=== PATIENT | female | born 2000 | race Caucasian/White ===

== ENCOUNTER 2019-10-09 15:16 | Outpatient (CLI) | payer OTHER ==
[2019-10-09 16:07] LABS: APPEARANCE,URINE CLOUDY; BILIRUBIN,URINE NEGATIVE (NEGATIVE); COLOR,URINE YELLOW; GLUCOSE, URINE NEGATIVE (NEGATIVE); KETONES,URINE NEGATIVE (NEGATIVE)
[2019-10-09 16:08] LABS: AMORPHOUS SEDIMENT,URINE TRACE /HPF; LEUKOCYTE ESTERASE,URINE TRACE (NEGATIVE); NITRITE,URINE NEGATIVE (NEGATIVE); PROTEIN,URINE NEGATIVE (NEGATIVE); UROBILINOGEN,URINE NEGATIVE mg/dL (<2.0)
[2019-10-09 16:26] LABS: URINE AMPHETAMINES SCREEN NEGATIVE; URINE BARBITURATES SCREEN NEGATIVE; URINE BENZODIAZEPINES SCREEN NEGATIVE; URINE COCAINE SCREEN NEGATIVE; URINE MARIJUANA (THC) SCREEN NEGATIVE; URINE METHADONE SCREEN NEGATIVE; URINE PHENCYCLIDINE SCREEN NEGATIVE
[2019-10-09 17:23] LABS: T.VAGINALIS (WET MOUNT) NO TRICHOMONAS SEEN; WBCS (WET MOUNT) 1+ WBCS SEEN; YEAST (WET MOUNT) NO YEAST SEEN
[2019-10-09 17:24] LABS: BACTERIA (WET MOUNT) 4+ BACTERIA SEEN; EPITHELIALS (WET MOUNT) 3+ EPITHELIALS SEEN; RBCS (WET MOUNT) 4+ RBCS SEEN
--- NOTE | 2019-10-09 17:56 | RADIOLOGY REPORT (SQ) ---
EXAM DESCRIPTION: U/S OB LIMITED COMPLETED DATE/TIME: 10/09/2019 5:37 pm REASON FOR STUDY: 27 weeks with spotting, COMPARISON: None. TECHNIQUE: Limited transabdominal grayscale ultrasound for evaluation of specific requested obstetri lowell parameters. LIMITATIONS: None. FINDINGS: CERVICAL LENGTH: 2.1 cm. Closed. LACEY: 9.1 cm. FHR: 136 beats per minute. PRESENTATION: Breech. PLACENTA: Anterior ANATOMY: Not assessed OTHER: No other significant findings. IMPRESSION: LIMITED OBSTETRICAL ULTRASOUND WITH MEASURED PARAMETERS DELINEATED ABOVE. Trimester of : Second trimester - 13 weeks 1 day to 27 weeks 6 days. TECHNICAL DOCUMENTATION: JOB ID: [id number] [employer]- All Rights Reserved Reading location - IP/workstation name: [email or web address]
[2019-10-09 18:58] LABS: CHLAM PCR NOT DETECTED (NOT DETECT)
== END 2019-10-09 18:02 | disposition home or self-care (01) ==
LOC: LC 15:16
PROVIDERS: ATTEND Obstetrics & Gynecology
PROC: 4A1HXCZ Monitoring of Products of Conception, Cardiac Rate, External Approach (ICD-10-PCS; principal; 2019-10-09)
DX: O26.852 Spotting complicating pregnancy, second trimester (principal); O47.02 False labor before 37 completed weeks of gestation, second trimester; Z3A.27 27 weeks gestation of pregnancy
CPT/HCPCS: 59899; 94760; 87086; 87210; 87088; 81001; 87186; 80307; 87491; 87591; 76815; Q0114

== ENCOUNTER 2019-11-20 15:50 | Emergency (ER) | payer BC, OTHER ==
[2019-11-20 16:07] VITALS: BP 117/72
--- NOTE | 2019-11-20 16:11 | ER Document Report ---
ED Medical Screen (RME) - General Chief Complaint: Shortness Of Breath Stated Complaint: SHORTNESS OF BREATH Time Seen by Provider: 11/20/19 16:04 TRAVEL OUTSIDE OF THE [place] IN LAST 30 DAYS: No - HPI Notes: 11/20/19 16:09 Patient is a 19-year-old female approx 33wks () who presents complaining of having palpitations for the past 1 to 2 days. She was sent here from labor and delivery for evaluation. Patient states that she does have occasional epigastric abdominal pain associated, but no lower abdominal pain or cramping. No vaginal discharge or bleeding. Patient states that she is c urrently being treated for UTI as well. Denies drug allergies. No fever. No h/o DVT/PE. I have treated and performed a rapid initial assessment of this patient. A comprehensive ED assessment and evaluation of the patient, analysis of test results and completion of medical decision making process will be conducted by additional ED providers. PHYSICAL EXAMINATION: GENERAL: Well-appearing, well-nourished and in no acute distress. A&Ox4. Answers questions appropriately. Heart: RRR Lungs: CTAB - Related Data Allergies/Adverse Reactions: No Known Allergies Allergy (Unverified 10/09/19 15:30) Physical Exam - Vital signs Vitals: Temp Pulse Resp BP Pulse Ox 98.4 F 110 H 16 117/72 100 11/20/19 16:04 11/20/19 16:04 11/20/19 16:04 11/20/19 16:04 11/20/19 16:04 Course - Vital Signs Vital signs: Temp Pulse Resp BP Pulse Ox 98.4 F 110 H 16 117/72 100 11/20/19 16:04 11/20/19 16:04 11/20/19 16:04 11/20/19 16:04 11/20/19 16:04
[2019-11-20 16:42] LABS: ABSOLUTE EOSINOPHILS # (AUTO) 0.5 10^3/uL (0.0-0.6); ABSOLUTE LYMPHOCYTES (AUTO) 1.5 10^3/uL (0.5-4.7); ABSOLUTE MONOCYTES (AUTO) 0.9 10^3/uL (0.1-1.4); ABSOLUTE NEUT (AUTO) 7.3 10^3/uL (1.7-8.2); BASOPHILS % (AUTO) 0.3 % (0-2); EOSINOPHILS % (AUTO) 5.1 % (0-6); HEMATOCRIT 33.8 % (36.0-47.0); HEMOGLOBIN 11.2 g/dL (12.0-15.5); MEAN CORPUSCULAR HEMOGLOBIN 28.3 pg (27.0-33.4); MEAN CORPUSCULAR HGB CONC 33.3 g/dL (32.0-36.0); MEAN CORPUSCULAR VOLUME 85 fl (80-97); MONOCYTES % (AUTO) 8.6 % (3-13); PLATELET COUNT 251 10^3/uL (150-450); RED BLOOD COUNT 3.97 10^6/uL (3.72-5.28); RED CELL DISTRIBUTION WIDTH 12.3 % (11.5-14.0); TOTAL CELLS COUNTED % (AUTO) 100 %; WHITE BLOOD COUNT 10.3 10^3/uL (4.0-10.5)
[2019-11-20 16:46] LABS: AMORPHOUS SEDIMENT,URINE TRACE /HPF; APPEARANCE,URINE TURBID; BILIRUBIN,URINE NEGATIVE (NEGATIVE); COLOR,URINE AMBER; GLUCOSE, URINE NEGATIVE (NEGATIVE); KETONES,URINE NEGATIVE (NEGATIVE); PROTEIN,URINE NEGATIVE (NEGATIVE); URINE SPECIFIC GRAVITY 1.016; UROBILINOGEN,URINE NEGATIVE mg/dL (<2.0)
--- NOTE | 2019-11-20 16:54 | RADIOLOGY REPORT (SQ) ---
EXAM DESCRIPTION: CHEST 2 VIEWS COMPLETED DATE/TIME: 11/20/2019 4:35 pm REASON FOR STUDY: palpitations, 33wks preg COMPARISON: None. EXAM PARAMETERS: NUMBER OF VIEWS: Two views. TECHNIQUE: PA and lateral views of the chest were obtained.. RADIATION DOSE: NA LIMITATIONS: none FINDINGS: LUNGS AND PLEURA: No consolidation, pleural effusion or pneumothorax. MEDIASTINUM AND HILAR STRUCTURES: No mediastinal or hilar contour abnormality. HEART AND VASCULAR STRUCTURES: The cardiac silhouette and pulmonary vasculature are within normal mercado its. BONES: No acute findings. HARDWARE: None in the chest. OTHER: No other finding. IMPRESSION: No acute cardiopulmonary process. TECHNICAL DOCUMENTATION: JOB ID: [id number] 2010 [employer]- All Rights Reserved Reading location - IP/workstation name: [email or web address]
[2019-11-20 17:17] LABS: ALBUMIN 3.6 g/dL (3.5-5.0); ALKALINE PHOSPHATASE 105 U/L (38-126); ANION GAP 9 (5-19); ASPARTATE AMINO TRANSFERASE 23 U/L (14-36); BILIRUBIN,DIRECT 0.2 mg/dL (0.0-0.4); BILIRUBIN,TOTAL 0.3 mg/dL (0.2-1.3); BLOOD UREA NITROGEN 7 mg/dL (7-20); CALCIUM 9.4 mg/dL (8.4-10.2); CARBON DIOXIDE 26 mmol/L (22-30); CHLORIDE 102 mmol/L (98-107); GLUCOSE 92 mg/dL (75-110); TOTAL PROTEIN 7.1 g/dL (6.3-8.2)
--- NOTE | 2019-11-20 18:09 | EKG REPORT ---
SEVERITY:- OTHERWISE NORMAL ECG - SINUS TACHYCARDIA : Confirmed by: Sigrid Myrick MD 20-Nov-2019 18:08:41
== END 2019-11-20 18:21 | disposition left against medical advice (07) ==
LOC: ER 15:50
DX: Z53.21 Procedure and treatment not carried out due to patient leaving prior to being seen by health care provider (principal); R06.02 Shortness of breath; R00.2 Palpitations; R10.13 Epigastric pain
CPT/HCPCS: 36415; 71046; 80053; 81001; 83735; 84443; 85025; 93005; 93010; 99281

== ENCOUNTER → 2019-11-20 | Outpatient (CLI) | payer BC, OTHER | LOC: LC 15:31 | PROVIDERS: ATTEND Obstetrics & Gynecology | DX: Z53.8 Procedure and treatment not carried out for other reasons (principal) ==

== ENCOUNTER 2019-12-10 11:53 | Inpatient (IN) | payer BC, OTHER ==
[2019-12-10] MEDS ORDERED: CITRIC ACID/SODIUM CITRATE ORAL SOLN 15 ML UDCUP ONE (12:01)
[2019-12-10] MEDS ORDERED: CEFAZOLIN 1 GM/D5W RTU 2 GM/100 ML RTUPB IV ONE (12:01)
--- NOTE | 2019-12-10 12:13 | Admission Physical ---
Datetime Report Generated by CPN: 12/10/2019 12:12 CURRENT ADMISSION Chief Complaint: Vaginal Bleeding Chief Complaint Other: Heavy vaginal bleeding in 36.0 wk with posterior previa Admit Impression : , Intrauterine ; Vaginal Bleeding Admit Plan: Admit to Unit; Initiate Section Protocol ALLERGIES Medication Allergies: No Medication Allergies: No Known Allergies (10/09/2019) Latex: No Latex Allergies Food Allergies: None Environmental Allergies: None OBSTETRICAL HISTORY EDC: 01/07/2020 00:00 : 2 Para: 0 Term: 0 : 0 SAB: 1 Ectopic: 0 Livin Cesareans: 0 VBACs: 0 Multiple Births: 0 Gestational Diabetes: No Rh Sensitization: No Incompetent Cervix: No MAY: No Infertility: No ART Treatment: No Uterine Anomaly: No IUGR: No Hx Previous C/S: No Macrosomia: No Hx Loss/Stillborn: Yes PIH: No Hx : No Placenta Previa/Abruption: No Depression/PP Depression: No PTL/PROM: No Post Hemorrhage: No Current Procedures: Ultrasound Obstetrical History Comments: 2018, SAB G2-Current SEE RECORDS Alcohol: No Marijuana : No Cocaine: No Other Illicit Drugs: No Cigarettes: Former Smoker. [id number] MEDICAL HISTORY Diabetes: No Blood Transfusion: No Pulmonary Disease (Asthma, TB): No Breast Disease: No Hypertension: No Online Services Manager Surgery: No Heart Disease: No Hosp/Surgery: Yes Autoimmune Disorder: No Anesthetic Complications: No Kidney Disease: Yes Abnormal Pap Smear: No Neuro/Epilepsy: No Psychiatric Disorders: No Other Medical Diseases: No Hepatitis/Liver Disease: No Significant Family History: No Varicosities/Phlebitis: No Trauma/Violence : No Thyroid Dysfunction: No Medical History Comments: Frequent UTI, Deflux of right kidney 2016 INFECTIOUS HISTORY Gonorrhea: No Genital Herpes: No Chlamydia: No Tuberculosis: No Syphilis: No Hepatitis: No HIV/AIDS Exposure: No Rash or Viral Illness: No HPV: No PHYSICAL EXAM General: Normal HEENT: Normal Neurologic: Normal Thyroid: Normal Heart: Normal Lungs: Normal Breast: Normal Back: Normal Abdomen: Normal Genitourinary Exam: Normal Extremities: Normal DTRs: Normal Pelvic Type: Adequate Vital Signs: Reviewed VAGINAL EXAM Contraction Comments: none noted MEMBRANES Membranes: Intact FETUS A EGA: 36.0 Monitoring: External US FHR- Baseline: 125 Variability: Moderate 6-25bpm Accelerations: 15X15 Decelerations: None FHR Category: Category I Presentation: Vertex Admit Comment: at 36.o wks with heavy vaginal bleeding from abruption r/t posterior previa. -Pt report large gush bleeding followed by continued bleeding requiring towel between legs to get here. No pain -Admit to LDR for PCS -NPO and IVFs: LR at 125 cc/hr. Make sure two large bore IV access obtained now -CEFM and toco FHR 125-130 w/ moderate variability and no decels seen -Ancef 2 gms IV prior to OR -Contact anesthesia/OR and nursing super. Plan for PCS for placenta abruption/previa at 36.0 wks EGA -SCDs for DVT proph -Routine and abruption labs ordered: pending -Risks, benefits discussed . COnsent signed for Primary section and blood products. PLANS FOR LABOR AND DELIVERY Feeding Preference: Breast Benefit of Breast Feed Discussed: Yes Circumcision: Yes INFORMED CONSENT Informed Consent Obtained: Section Delivery; Risks, Benefits and Alternatives Discussed Signature: with User ID: [email or web address] : with User ID: [email or web address]
[2019-12-10] MEDS ORDERED: CEFAZOLIN SODIUM 1 GM in DEXTROSE 5%-WATER 50 ML IV PRN (12:15)
[2019-12-10] MEDS ORDERED: FENTANYL CITRATE INJ/PF 100 MCG/2 ML AMPUL ONE ×2 (12:19→13:14)
[2019-12-10] MEDS ORDERED: PHENYLEPHRINE HCL INJ/PF 10 MG/1 ML SDV ONE (12:19)
[2019-12-10] MEDS ORDERED: OXYTOCIN 10 UNIT/ML VIAL ONE (12:19)
[2019-12-10] MEDS ORDERED: ONDANSETRON HCL INJ/PF 4 MG/2 ML SDV ONE (12:19)
[2019-12-10] MEDS ORDERED: ACETAMINOPHEN 1,000 MG/100 ML RTUPB IV ONE (12:19)
[2019-12-10] MEDS ORDERED: OXYTOCIN/NORMAL SALINE 20 UNIT/1,000 ML RTUINJ ONE (12:19)
[2019-12-10] MEDS ORDERED: KETOROLAC TROMETHAMINE INJ/PF 30 MG/1 ML SDV ONE (12:19)
[2019-12-10] MEDS ORDERED: PROPOFOL INJ 200 MG/20 ML VIAL IV ONE (12:20)
[2019-12-10 12:55] LABS: ABSOLUTE BASOPHILS # (AUTO) 0.1 10^3/uL (0.0-0.2); ABSOLUTE EOSINOPHILS # (AUTO) 0.3 10^3/uL (0.0-0.6); ABSOLUTE LYMPHOCYTES (AUTO) 1.7 10^3/uL (0.5-4.7); ABSOLUTE MONOCYTES (AUTO) 0.9 10^3/uL (0.1-1.4); ABSOLUTE NEUT (AUTO) 7.6 10^3/uL (1.7-8.2); BASOPHILS % (AUTO) 0.7 % (0-2); EOSINOPHILS % (AUTO) 2.8 % (0-6); HEMATOCRIT 32.8 % (36.0-47.0); HEMOGLOBIN 11.3 g/dL (12.0-15.5); LYMPHOCYTES % (AUTO) 15.6 % (13-45); MEAN CORPUSCULAR HEMOGLOBIN 28.7 pg (27.0-33.4); MEAN CORPUSCULAR HGB CONC 34.6 g/dL (32.0-36.0); MEAN CORPUSCULAR VOLUME 83 fl (80-97); MONOCYTES % (AUTO) 8.9 % (3-13); PLATELET COUNT 297 10^3/uL (150-450); RED BLOOD COUNT 3.95 10^6/uL (3.72-5.28); RED CELL DISTRIBUTION WIDTH 12.9 % (11.5-14.0); TOTAL CELLS COUNTED % (AUTO) 100 %; WHITE BLOOD COUNT 10.6 10^3/uL (4.0-10.5)
[2019-12-10] MEDS ORDERED: METHYLERGONOVINE MALEATE INJ/PF 0.2 MG/1 ML AMPULE ONE (12:55)
[2019-12-10 13:12] LABS: INTERNATIONAL RATION (INR) 0.95; PROTHROMBIN TIME 12.7 SEC (11.4-15.4)
[2019-12-10 13:13] LABS: FIBRINOGEN 500 mg/dL (209-497); PARTIAL THROMBOPLASTIN TIME 28.5 SEC (23.5-35.8)
[2019-12-10] MEDS ORDERED: DIPH/PERTUSS(ACELL)/TETANUS VAC/PF 0.5 ML SYR (>=10YO) IM PRN (13:34)
[2019-12-10] MEDS ORDERED: ACETAMINOPHEN 325 MG TABLET PO PRN (13:34)
[2019-12-10] MEDS ORDERED: SIMETHICONE 80 MG TAB.CHEW PO PRN (13:34)
[2019-12-10] MEDS ORDERED: MEASLES,MUMPS&RUBELLA VACC/PF 0.5 ML VIAL SUBCUT PRN (13:34)
[2019-12-10] MEDS ORDERED: OXYTOCIN/NORMAL SALINE 20 UNIT/1,000 ML RTUINJ IV PRN (13:34)
[2019-12-10] MEDS ORDERED: HYDROMORPHONE HCL INJ/PF 2 MG/ML AMPULE IV PRN (13:34)
[2019-12-10] MEDS ORDERED: PROMETHAZINE HCL INJ 25 MG/1 ML VIAL IV PRN (13:34)
[2019-12-10] MEDS ORDERED: KETOROLAC TROMETHAMINE INJ/PF 30 MG/1 ML SDV IV PRN (13:37)
[2019-12-10] MEDS ORDERED: PROMETHAZINE HCL INJ 25 MG/1 ML VIAL ONE (13:46)
[2019-12-10] MEDS ORDERED: HYDROMORPHONE HCL INJ/PF 2 MG/ML AMPULE ONE (13:46)
--- NOTE | 2019-12-10 13:54 | Operative Report ---
Operative Report DATE OF SURGERY: 12/10/19 PREOPERATIVE DIAGNOSIS: Intrauterine at 36 wks EGA. Placental abrupt ion. Vaginal bleeding. Placental previa POSTOPERATIVE DIAGNOSIS: Same as above OPERATION: Primary section SURGEON: CELENA FOX ANESTHESIA: GA TISSUE REMOVED OR ALTERED: Placenta COMPLICATIONS: None ESTIMATED BLOOD LOSS: 700cc INTRAOPERATIVE FINDINGS: Normal appearing uterus with ANTERIOR placenta previa with velamentous appearing cord insertion vs marginal. Bilateral fallopian tubes and ovaries normal. Viable male infant in vertex presentation. Clear amniotic flluids PROCEDURE: IV fluids: per anesthesia record approx 700cc Urinary output: 100 cc Findings: Normal-appearing uterus bilateral fallopian tubes and ovaries. Anterior placenta previa with velamentous appearing cord insertion vs marginal. Viable male infant with Apgars of 6 and 8, at 1 and 5 minutes respectively. Position: To recovery room in stable condition Description of procedure: The patient was taken to the operating room and general anesthesia was administered and found to be adequate. She was then placed on the OR table in the supine position with a slight leftward tilt. Patient was prepped and draped in usual sterile fashion. Ancef 2 gms was given IV prior to the procedure for infection prophylaxis. Timeout was taken. A Pfannenstiel skin incision was then made approximately 3 cm above the pubic symphysis and carried down to level the rectus fascia. The rectus fascia was then nicked in the midline with a scalpel and the fascial incision was extended laterally with use of curved Eddy scissors. The rectus fascia was then grasped with 2 Kocker clamps elevated and t he underlying rectus muscle was dissected off both bluntly and sharply. Any bleeding controlled with cautery. The rectus muscles were then split in the midline and the peritoneum was entered. The peritoneal incision was then extended by manually stretching the peritoneum. The bladder blade was positioned. Bladder flap created and the bladder was noted to be out of harm's way. A scalpel was then used in the lower uterine for the hysterotomy, slowly until amniotomy was obtained a large amount of bleeding was noted from anterior placenta. The uterine incision was then manually stretched. Amniotomy obtained and moderate amount clear fluid noted. The infant was noted to be in vertex postion. The head was elevated and brought to the hysterotomy incision with a hand and ultimately assist of Kiwi as head was difficult to deliver. Kiwi applied 2 cm anterior to posterior fontanel and over sagital suture. Suction applied just to green and gentle traction with orthotic assistant pushing. Pot off x1 . The head then delivered. The shoulders and the rest of the body followed immediately. The cord was cut clamped and the was handed off to the nurse awaiting. was crying prior to hand off. The placenta was manually delivered. Using a lap gauze the uterus was cleared of all clots and debris. The uterus was then exteriorized and a bladder blade was repositioned. The uterine incision was then closed with 0 Chromic suture in a running locked fashion. A second layer of the same suture was used in a running locked imbricated fashion. The uterine incision was inspected and noted to be hemostatic. The posterior aspect of the uterus was then inspected and anatomy was seen as above. The uterus was returned to its normal anatomic position within the abdominal cavity. Warm saline irrigation was used to clear all clots and debris from the abdomen. The uterine incision was inspected once more and noted to remain hemostatic. The bladder blade was removed and the peritoneum was closed with 2-0 chromic in a running fashion. The rectus muscles were then reapproximated and the rectus fascia was closed with a #1 PDS in a running fashion. The subcutaneous tissue was then inspected and any bleeding was controlled with Bovie electrocautery. The subcutaneous tissue was then closed with 2-0 Plain Gut suture in a running fashion. The skin was then closed with 3-0 Monocryl in a running subcuticular fashion. The skin incision was then clean dried and Dermabond was applied over the skin incision. All instrument sponge and needle counts were correct x3 for the procedure the patient tolerated the procedure well. She will proceed to recovery room in stable condition
[2019-12-10] MEDS ORDERED: IBUPROFEN 800 MG TABLET PO SCH ×2 (14:00→22:00)
[2019-12-10] MEDS ORDERED: MORPHINE SULFATE 10 MG/ML INJ ONE (14:46)
--- NOTE | 2019-12-10 16:08 | Delivery Summary ---
Del Sum A-C Datetime Report Generated by CPN: 12/10/2019 16:07 DELIVERY PERSONNEL DELIVERY PERSONNEL: [id number] Delivery Doctor:: Damaris Bradley MD Anesthesiologist:: Kathrine Gregory MD TON CONTAINER SHIPPER:: Willy Normile TON CONTAINER SHIPPER Labor and Delivery Nurse:: Umm Partida RNresidential tech Nurse:: Hugh Galvez RN Government Auditor:: Umm Partida RN Neonatal Nurse Practitioner:: JUANA Moy Nursery Nurse:: Cindy Coe RN Nursery Nurse:: Betty Gayle RN Water Softener Service Supervisor/FRAME FIXER: Sapphire Calero CST Water Softener Service Supervisor/FRAME FIXER: Kelli Ojeda CST MATERNAL INFORMATION Delivery Anesthesia: General Medications After Delivery: Pitocin Drip 20 Units/1000ml NSS Meds After Delivery Comment: pitocin 20 units in 1000mL nss Delivery QBL: 550 Maternal Complications: Placenta Previa; Abruptio Placenta LABOR SUMMARY EDC: 01/07/2020 00:00 No. Babies in Womb: 1 Attempted: No LABOR INFORMATION Reason for Induction: Not Applicable Oxytocin: N/A Group B Beta Strep: unknown Steroids Given: None Reason Steroids Not Administered: Not Applicable STAGES OF LABOR Stage 3 hr: 0 Stage 3 min: 1 VAGINAL DELIVERY Episiotomy: None Laceration #1: None Laceration Repair: Not Applicable Sponge Count Correct: N/A Sharps Count Correct: N/A CSECTION DELIVERY Primary Indication: Placenta Previa Secondary Indication: N/A CSection Urgency: Non-Scheduled CSection Incidence: Primary Labor: No Labor Elective: Nonelective CSection Incision: Lower Uterine Transverse BABY A INFORMATION Infant Delivery Date/Time: 12/10/2019 12:51 Method of Delivery: Nurse Controlled Delivery: No Born in Route : No : N/A Forceps: N/A Vacuum Extraction: Successful Shoulder Dystocia : No PRESENTATION/POSITION BABY A Presentation: Cephalic Cephalic Presentation: Vertex Breech Presentation: N/A PLACENTA INFORMATION BABY A Placenta Delivery Time : 12/10/2019 12:52 Placenta Method of Delivery: Manual Removal Placenta Status: Delivered SCORES BABY A Heart Rate 1 min: >100 bpm Resp Effort 1 min: Good Cry Reflex Irritability 1 min: Cough or Sneeze or Pulls Away Muscle Tone 1 min: Flaccid Color 1 min: Blue/Pale Resuscitation Effort 1 min: Tactile Stimulation SCORE 1 MIN: 6 Heart Rate 5 min: >100 bpm Resp Effort 5 min: Good Cry Reflex Irritability 5 min: Cough or Sneeze or Pulls Away Muscle Tone 5 min: Some Flexion of Extremities Color 5 min: Body [place], Extremities Blue Resuscitation Effort 5 min: Tactile Stimulation; Oxygen SCORE 5 MIN: 8 INFANT INFORMATION BABY A Gestational Age at Delivery: 36.0 Gestational Status: Late - 34- 36.6 Weeks Infant Outcome : Liveborn Condition : Stable Sex: Male IDENTIFICATION BABY A Infant Verification Date/Time: 12/10/2019 13:03 ID Band Number: [id number] Mother's Name Verified: Yes RN Verifying Infant: Juan Pablo Wiggins RN Additional Verifying Personnel: Diana Galvez RN WEIGHT/LENGTH BABY A Infant Birthweight (gm): 2822 Infant Weight (lb): 6 Infant Weight (oz): 4 Infant Length (in): 18.50 Length (cm): 46.99 CORD INFORMATION BABY A No. Cord Vessels: 3 Nuchal Cord : N/A Cord Blood Taken: Yes-For Storage (Mom's Blood type +) BABY B INFORMATION : N/A
[2019-12-10] MEDS: OXYCODONE-ACETAMINOPHEN 5-325 MG TABLET PO PRN (17:11)
[2019-12-10] MEDS: DOCUSATE SODIUM 100 MG CAPSULE PO SCH (17:11)
[2019-12-10] MEDS: KETOROLAC TROMETHAMINE INJ/PF 30 MG/1 ML SDV IV SCH (22:16)
[2019-12-11] MEDS: KETOROLAC TROMETHAMINE INJ/PF 30 MG/1 ML SDV IV SCH (05:05)
[2019-12-11] MEDS: OXYCODONE-ACETAMINOPHEN 5-325 MG TABLET PO PRN ×3 (05:05→19:23)
[2019-12-11] MEDS ORDERED: KETOROLAC TROMETHAMINE INJ/PF 30 MG/1 ML SDV IV SCH (06:00)
[2019-12-11 07:59] LABS: HEMATOCRIT 22.6 % (36.0-47.0); MEAN CORPUSCULAR HEMOGLOBIN 27.9 pg (27.0-33.4); MEAN CORPUSCULAR HGB CONC 33.4 g/dL (32.0-36.0); MEAN CORPUSCULAR VOLUME 84 fl (80-97); PLATELET COUNT 251 10^3/uL (150-450); RED BLOOD COUNT 2.71 10^6/uL (3.72-5.28); RED CELL DISTRIBUTION WIDTH 12.8 % (11.5-14.0); WHITE BLOOD COUNT 14.3 10^3/uL (4.0-10.5)
[2019-12-11 08:03] LABS: HEMOGLOBIN 7.5 g/dL (12.0-15.5)
[2019-12-11] MEDS: FERROUS SULFATE 325 MG TABLET PO SCH ×2 (10:16→19:20)
[2019-12-11] MEDS: PRENATAL VITAMIN W DHA CAPSULE PO SCH (10:16)
[2019-12-11] MEDS: DOCUSATE SODIUM 100 MG CAPSULE PO SCH ×2 (10:16→19:20)
--- NOTE | 2019-12-11 10:26 | PDOC PROGRESS REPORT ---
Subjective-OB Progress Note for:: 12/11/19 Subjective: reports bleeding slowing, pain controlled with current meds. denies needs Physical Exam (OB) Vital Signs: Temp Pulse Resp BP Pulse Ox 97.9 F 99 16 110/55 L 100 12/11/19 07:25 12/11/19 07:25 12/11/19 07:25 12/11/19 07:25 12/11/19 07:25 Intake & Output 12/10/19 12/11/19 12/12/19 06:59 06:59 06:59 Intake Total 400 Output Total 650 Balance -650 400 Weight 104.326 kg - Dressing Removed: No - no dressing Incision: Well Approximated Closure Type: Surgical Glue - Abdomen Description: Tender, Soft Hernia Present: No Fundal Description: Firm Fundal Height: u/u - u/2 - Abdominal Distension: No distension - Extremities Lower extremities: Ivanna's sign - neg Calf: Normal, Nontender Objective-Diagnostic Laboratory: 12/11/19 06:53 12/10/19 12/10/19 12/11/19 12:28 12:28 06:53 WBC 10.6 H 14.3 H RBC 3.95 2.71 L Hgb 11.3 L 7.5 L D Hct 32.8 L 22.6 L MCV 83 84 MCH 28.7 27.9 MCHC 34.6 33.4 RDW 12.9 12.8 Plt Count 297 251 Seg Neutrophils % 72.0 Blood Type A POSITIVE Antibody Screen NEGATIVE Assessment and Plan(PN) - Time Spent with Patient Time with patient: Less than 15 minutes - Disposition Anticipated Discharge: Home Within: within 24 hours
[2019-12-11] MEDS: IBUPROFEN 800 MG TABLET PO SCH ×2 (11:54→19:20)
[2019-12-11] MEDS ORDERED: IBUPROFEN 800 MG TABLET PO PRN (13:38)
[2019-12-12] MEDS: IBUPROFEN 800 MG TABLET PO SCH ×5 (00:16→23:34)
[2019-12-12] MEDS: OXYCODONE-ACETAMINOPHEN 5-325 MG TABLET PO PRN (06:13)
[2019-12-12 07:19] LABS: ABSOLUTE EOSINOPHILS # (AUTO) 0.7 10^3/uL (0.0-0.6); ABSOLUTE LYMPHOCYTES (AUTO) 2.5 10^3/uL (0.5-4.7); ABSOLUTE NEUT (AUTO) 8.9 10^3/uL (1.7-8.2); BASOPHILS % (AUTO) 0.2 % (0-2); EOSINOPHILS % (AUTO) 5.5 % (0-6); HEMATOCRIT 19.7 % (36.0-47.0); LYMPHOCYTES % (AUTO) 19.3 % (13-45); MEAN CORPUSCULAR HEMOGLOBIN 27.5 pg (27.0-33.4); MEAN CORPUSCULAR HGB CONC 32.8 g/dL (32.0-36.0); MEAN CORPUSCULAR VOLUME 84 fl (80-97); MONOCYTES % (AUTO) 7.7 % (3-13); PLATELET COUNT 222 10^3/uL (150-450); RED BLOOD COUNT 2.35 10^6/uL (3.72-5.28); RED CELL DISTRIBUTION WIDTH 13.1 % (11.5-14.0); SEGMENTED NEUTROPHILS % (AUTO) 67.3 % (42-78); TOTAL CELLS COUNTED % (AUTO) 100 %; WHITE BLOOD COUNT 13.1 10^3/uL (4.0-10.5)
[2019-12-12 07:21] LABS: HEMOGLOBIN 6.5 g/dL (12.0-15.5)
[2019-12-12] MEDS ORDERED: NORMAL SALINE 250 ML IV PRN (09:29)
--- NOTE | 2019-12-12 09:36 | PDOC PROGRESS REPORT ---
Subjective-OB Progress Note for:: 12/12/19 Subjective: Pt doing well, no concerns. Pain is well controlled. She does feel tired and sore but pain is well controlled. Denies symptoms of dizziness and shortness of breath. Consented verbally again for administration of blood products. Pt reports regular diet, pos flatus and voiding without difficulty. Physical Exam (OB) Vital Signs: Temp Pulse Resp BP Pulse Ox 98.0 F 85 17 129/69 H 99 12/12/19 07:25 12/12/19 07:25 12/12/19 07:25 12/12/19 07:25 12/12/19 07:25 Intake & Output 12/11/19 12/12/19 12/13/19 06:59 06:59 06:59 Intake Total 1450 Output Total 650 100 Balance -650 1350 Weight 104.326 kg - PIH/Pre-Eclampsia DTR's: 1 + Clonus: Negative Headache: Absent Epigastric Pain: No Visual Changes: No - Dressing Removed: No - no dressing Incision: Open Closure Type: Surgical Glue - Lochia Lochia Amount: Scant < 10 ml Lochia Color: Rubra/Red - Abdomen Description: Soft, Round Hernia Present: No Fundal Description: Firm, Midline Fundal Height: u/u - u/2 Objective-Diagnostic Laboratory: 12/12/19 06:47 12/10/19 12/12/19 12:28 06:47 WBC 13.1 H RBC 2.35 L Hgb 6.5 L Hct 19.7 L MCV 84 MCH 27.5 MCHC 32.8 RDW 13.1 Plt Count 222 Seg Neutrophils % 67.3 Blood Type A POSITIVE Antibody Screen NEGATIVE Assessment and Plan(PN) - Assessment and Plan (1) Acute blood loss anemia Is this a current diagnosis for this admission?: Yes (2) Placenta previa antepartum Is this a current diagnosis for this admission?: Yes (3) Placental abruption affecting delivery Is this a current diagnosis for this admission?: Yes (4) NB deliv by , 1,500-1,749 gm, 35-36 completed weeks Is this a current diagnosis for this admission?: Yes (5) S/P emergency Is this a current diagnosis for this admission?: Yes Plan:: transfuse PRBCs - Time Spent with Patient Time with patient: Less than 15 minutes Medications reviewed and adjusted accordingly: Yes - Disposition Anticipated Discharge: Home Within: within 24 hours, within 48 hours
[2019-12-12] MEDS: DOCUSATE SODIUM 100 MG CAPSULE PO SCH ×2 (09:51→17:43)
[2019-12-12] MEDS: FERROUS SULFATE 325 MG TABLET PO SCH ×2 (09:51→17:43)
[2019-12-12] MEDS: PRENATAL VITAMIN W DHA CAPSULE PO SCH (09:51)
[2019-12-13] MEDS: IBUPROFEN 800 MG TABLET PO SCH ×2 (05:20→11:28)
[2019-12-13] MEDS: DOCUSATE SODIUM 100 MG CAPSULE PO SCH (10:01)
[2019-12-13] MEDS: PRENATAL VITAMIN W DHA CAPSULE PO SCH (10:01)
[2019-12-13] MEDS: FERROUS SULFATE 325 MG TABLET PO SCH (10:01)
[2019-12-13 12:03] LABS: HEMATOCRIT 31.2 % (36.0-47.0); MEAN CORPUSCULAR HEMOGLOBIN 28.7 pg (27.0-33.4); MEAN CORPUSCULAR HGB CONC 34.6 g/dL (32.0-36.0); MEAN CORPUSCULAR VOLUME 83 fl (80-97); PLATELET COUNT 247 10^3/uL (150-450); RED BLOOD COUNT 3.76 10^6/uL (3.72-5.28); RED CELL DISTRIBUTION WIDTH 13.5 % (11.5-14.0); WHITE BLOOD COUNT 13.1 10^3/uL (4.0-10.5)
[2019-12-13 12:04] LABS: HEMOGLOBIN 10.8 g/dL (12.0-15.5)
--- NOTE | 2019-12-13 14:17 | PDOC DELIVERY SUMMARY ---
Delivery Summary - Maternal Hx : I Hx Para: 0 Hx # Term Pregnancies: 0 Hx # Pregnancies: 0 Hx Total # of Abortions (Sponateous & Elective): 0 Number of Living Children: 0 Gestational Age: 36.0 wks E Risk Factors: Other - Placenta abruption Placenta previa Intrapartum: Bleeding - Delivery Labor: Not In Labor Presentation: Vertex Heart Rate Monitoring: Externally Uterine Contraction Monitoring: External Pattern: Other: Document in Pattern Other - Cat 1 tracing. Moderate variabilty, rate 125 bpm and no decels or acels Support Person Present: Yes Location: OR : Primary Placenta: Abnormal Placenta Description: Anterior placenta previa with velamentous cord insertion verses marginal Number of Vessels (Cord): 3 Nuchal Cord: No Delivery of Placenta Date: 12/10/19 Estimated Blood Loss: 700 - Medications Type of Anesthesia:: GA - Delivery Medications Delivery Meds: Methergine 0.2mg IM - Assess and Care Baby 1 Male Delivery of Date: 12/10/19 at 1 minute: 6 at 5 minutes: 8 Skin to Skin: No
--- NOTE | 2019-12-13 14:49 | PDOC DISCHARGE SUMMARY ---
Impression - Admit/DC Date/PCP Admission Date/Primary Care Provider: 12/10/19 12:03 Discharge Date: 12/13/19 - Discharge Diagnosis (1) NB deliv by , 1,500-1,749 gm, 35-36 completed weeks Is this a current diagnosis for this admission?: Yes (2) Acute blood loss anemia Is this a current diagnosis for this admission?: Yes (3) Placenta previa antepartum Is this a current diagnosis for this admission?: Yes (4) S/P emergency Is this a current diagnosis for this admission?: Yes (5) Placental abruption affecting delivery Is this a current diagnosis for this admission?: Yes (6) Blood transfusion during current hospitalisation Is this a current diagnosis for this admission?: Yes - Assessment Summary: s/p primary at 36wga for placental abruption with placenta previa ppd3. Stable and baby remains in NICU, pt will stay and nest upon discharge - Additional Information Discharge Diet: As Tolerated, Regular Discharge Activity: Activity As Tolerated, Balance Activity w/Rest, No Driving, No Lifting Over 10 Pounds, Pelvic Rest, No tub bath, Walk Frequently Prescriptions: Oxycodone HCl/Acetaminophen [Percocet 5-325 mg Tablet] 1 tab PO Q4HP PRN #20 tablet PRN Reason: For Pain Scale 3-5 Ibuprofen [Motrin 800 mg Tablet] 800 mg PO Q6HP PRN #20 tablet PRN Reason: For Pain Scale 1-3 Docusate Sodium [Colace 100 mg Capsule] 100 mg PO BID #60 capsule Ferrous Sulfate [Feosol 325 mg Tablet] 325 mg PO BID #60 tablet Home Medications: Vit No.130/Iron/Folic [ Tablet] 1 each PO DAILY 10/09/19 Docusate Sodium [Colace 100 mg Capsule] 100 mg PO BID #60 capsule 12/13/19 Ferrous Sulfate [Feosol 325 mg Tablet] 325 mg PO BID #60 tablet 12/13/19 Ibuprofen [Motrin 800 mg Tablet] 800 mg PO Q6HP PRN #20 tablet 12/13/19 Oxycodone HCl/Acetaminophen [Percocet 5-325 mg Tablet] 1 tab PO Q4HP PRN #20 t ablet 12/13/19 Results Laboratory Results: WBC 13.1 10^3/uL (4.0-10.5) H 12/13/19 11:52 RBC 3.76 10^6/uL (3.72-5.28) 12/13/19 11:52 Hgb 10.8 g/dL (12.0-15.5) L D 12/13/19 11:52 Hct 31.2 % (36.0-47.0) L 12/13/19 11:52 MCV 83 fl (80-97) 12/13/19 11:52 MCH 28.7 pg (27.0-33.4) 12/13/19 11:52 MCHC 34.6 g/dL (32.0-36.0) 12/13/19 11:52 RDW 13.5 % (11.5-14.0) 12/13/19 11:52 Plt Count 247 10^3/uL (150-450) 12/13/19 11:52 Lymph % (Auto) 19.3 % (13-45) 12/12/19 06:47 [place] % (Auto) 7.7 % (3-13) 12/12/19 06:47 Eos % (Auto) 5.5 % (0-6) 12/12/19 06:47 Baso % (Auto) 0.2 % (0-2) 12/12/19 06:47 Absolute Neuts (auto) 8.9 10^3/uL (1.7-8.2) H 12/12/19 06:47 Absolute Lymphs (auto) 2.5 10^3/uL (0.5-4.7) 12/12/19 06:47 Absolute Monos (auto) 1.0 10^3/uL (0.1-1.4) 12/12/19 06:47 Absolute Eos (auto) 0.7 10^3/uL (0.0-0.6) H 12/12/19 06:47 Absolute Basos (auto) 0.0 10^3/uL (0.0-0.2) 12/12/19 06:47 Seg Neutrophils % 67.3 % (42-78) 12/12/19 06:47 PT 12.7 SEC (11.4-15.4) 12/10/19 12:28 INR 0.95 12/10/19 12:28 APTT 28.5 SEC (23.5-35.8) 12/10/19 12:28 Fibrinogen 500 mg/dL (209-497) H 12/10/19 12:28 RPR NONREACTIVE (NONREACTIVE) 12/10/19 12:28 Blood Type A POSITIVE 12/10/19 12:28 Blood Type Confirm A POSITIVE 12/12/19 10:05 Antibody Screen NEGATIVE 12/10/19 12:28 Crossmatch See Detail 12/10/19 12:28
[2019-12-13 15:04] VITALS: BP 119/60
== END 2019-12-13 16:41 | disposition home or self-care (01) | DRG 787 ==
LOC: LC 11:53 → LR 12:03 → 2S 15:40
PROVIDERS: ADMIT Obstetrics & Gynecology; ATTEND Obstetrics & Gynecology
PROC: 10D00Z1 Extraction of Products of Conception, Low, Open Approach (ICD-10-PCS; principal; 2019-12-10)
PROC: 30233N1 Transfusion of Nonautologous Red Blood Cells into Peripheral Vein, Percutaneous Approach (ICD-10-PCS; 2019-12-12)
PROC: 3E0234Z Introduction of Serum, Toxoid and Vaccine into Muscle, Percutaneous Approach (ICD-10-PCS; 2019-12-13)
DX: O44.13 Complete placenta previa with hemorrhage, third trimester (principal); D62 Acute posthemorrhagic anemia; O45.93 Premature separation of placenta, unspecified, third trimester; O43.123 Velamentous insertion of umbilical cord, third trimester; O99.02 Anemia complicating childbirth; Z3A.36 36 weeks gestation of pregnancy; Z37.0 Single live birth; Z23 Encounter for immunization
CPT/HCPCS: 1961; 36415; 36430; 85025; 85027; 85384; 85610; 85730; 86592; 86850; 86900; 86901; 86920; 88307; 90715; 94799; J0131; J0690; J1170; J1885; J2210; J2270; J2370; J2405; J2550; J2590; J2704; J3010; J3490; P9016

== ENCOUNTER 2019-12-27 21:26 | Emergency (ER) | payer BC, OTHER ==
--- NOTE | 2019-12-27 22:43 | ER Document Report ---
ED GI/ - General Chief Complaint: Vaginal Bleeding Stated Complaint: BLEEDING POST Time Seen by Provider: 12/27/19 22:09 Primary Care Provider: [facility] [Provider Group] - Follow up in 3-5 days LILLY DICKINSON DO [Primary Care Provider] - Follow up as needed Mode of Arrival: Ambulatory Information source: Patient Notes: 19-year-old female presented to ED for complaint of vaginal bleeding. She states she is having 456 clots in the last hour. She states she had her baby on the 15th of and then a week later she was seen in the [facility] PS[facility]OLOG[facility]'s office because she had stopped bleeding and then started bleeding again. She states at that time the blood was bright red. She states now the blood is dark but she has had multiple clots and is used about 5 or 6 pads today. She is alert oriented respirations regular nonlabored speaking in full sentences. I have spoken with Dr. Bradley, we will get a hemoglobin monitor her vital signs will give a liter of fluids while waiting for the blood work to come back and then if her vital signs have stabilized will discharge home if not may speak with Dr. Brdaley again. Patient is alert oriented respirations regular nonlabored speaking in full sentences. TRAVEL OUTSIDE OF THE [place] IN LAST 30 DAYS: No - HPI Patient complains to provider of: Vaginal bleeding, Other - 2 weeks Onset: Last week Timing/Duration: Waxing and waning Quality of pain: Cramping Severity at maximum: Mild Severity in ED: Mild Pain Level: 1 Location: Suprapubic Vaginal bleeding (Compared to normal period): Similar, Passing clots LMP: 2 weeks Associated symptoms: Other - Vaginal bleeding Exacerbated by: Denies Relieved by: Denies Similar symptoms previously: Yes Recently seen / treated by doctor: Yes - Related Data Allergies/Adverse Reactions: No Known Allergies Allergy (Unverified 10/09/19 15:30) Past Medical History - General Information source: Patient - Social History Smoking Status: Former Smoker Chew tobacco use (# tins/day): No Frequency of alcohol use: None Drug Abuse: None Lives with: Family Family History: Reviewed & Not Pertinent Patient has suicidal ideation: No Patient has homicidal ideation: No - Past Medical History Cardiac Medical History: Reports: None Pulmonary Medical History: Reports: None EENT Medical History: Reports: None Neurological Medical History: Reports: None Endocrine Medical History: Reports: None Renal/ Medical History: Reports: None Malignancy Medical History: Reports: None GI Medical History: Reports: None Musculoskeletal Medical History: Reports None Skin Medical History: Reports None Psychiatric Medical History: Reports: None Traumatic Medical History: Reports: None Infectious Medical History: Reports: None Past Surgical History: Reports: Hx Section - 12/10/19 - Immunizations Immunizations up to date: Yes Hx Diphtheria, Pertussis, Tetanus Vaccination: Yes Review of Systems - Review of Systems Constitutional: No symptoms reported EENT: No symptoms reported Cardiovascular: No symptoms reported Respiratory: No symptoms reported Gastrointestinal: No symptoms reported Genitourinary: No symptoms reported Female Genitourinary: Vaginal bleeding - 2 weeks Musculoskeletal: No symptoms reported Skin: No symptoms reported Hematologic/Lymphatic: No symptoms reported Neurological/Psychological: No symptoms reported -: Yes All other systems reviewed and negative Physical Exam - Vital signs Vitals: Temp Pulse Resp BP Pulse Ox 98.1 F 124 H 16 92/59 L 96 12/27/19 21:30 12/27/19 21:30 12/27/19 21:30 12/27/19 21:30 12/27/19 21:30 Interpretation: Normal - General General appearance: Appears well, Alert - HEENT Head: Normocephalic, Atraumatic Eyes: Normal Pupils: PERRL - Respiratory Respiratory status: No respiratory distress Chest status: Nontender Breath sounds: Normal Chest palpation: Normal - Cardiovascular Rhythm: Regular Heart sounds: Normal auscultation Murmur: No - Abdominal Inspection: Normal Distension: No distension Bowel sounds: Normal Tenderness: Nontender Organomegaly: No organomegaly - Genitourinary External exam: Normal Speculum exam: Cervix open Vaginal bleeding: None - Large dark clots Bimanuel exam: Normal - Back Back: Normal, Nontender - Extremities General upper extremity: Normal inspection, Nontender, Normal color, Normal ROM, Normal temperature General lower extremity: Normal inspection, Nontender, Normal color, Normal ROM, Normal temperature, Normal weight bearing. No: Ivanna's sign - Neurological Neuro grossly intact: Yes Cognition: Normal Orientation: AAOx4 [place] Coma Scale Eye Opening: Spontaneous [place] Coma Scale Verbal: Oriented [place] Coma Scale Motor: Obeys Commands [place] Coma Scale Total: 15 Speech: Normal Motor strength normal: LUE, RUE, LLE, RLE Sensory: Normal - Psychological Associated symptoms: Normal affect, Normal mood - Skin Skin Temperature: Warm Skin Moisture: Dry Skin Color: Normal Course - Re-evaluation Re-evalutation: 12/28/19 00:49 Patient is not excessively bleeding. I had talked with Dr. Bradley earlier she states that the patient would bleed off and on for up to 6 weeks. I have given the patient a copy of her labs results and told her to follow-up with the [facility] PSYCHOLOGIST. I have instructed her if she has any bright red blood or please call S[facility] PS[facility]OLOG[facility] immediately. Blood pressure was a little low so we gave her a liter of fluids and her blood pressures sprang back to her normal. She states she is feeling much better and she did verbalize understanding and agreement with treatment plan. - Vital Signs Vital signs: Temp Pulse Resp BP Pulse Ox 98.1 F 84 18 115/60 96 12/28/19 00:11 12/28/19 00:11 12/27/19 22:41 12/28/19 00:11 12/28/19 00:11 - Laboratory Result Diagrams: 12/27/19 23:00 12/27/19 23:00 Laboratory results interpreted by me: 12/27/19 12/27/19 22:50 23:00 WBC 13.0 H RDW 14.1 H Lymph % (Auto) 10.1 L Absolute Neuts (auto) 10.0 H Urine Blood LARGE H Leukocyte Esterase Rfl MODERATE H Discharge - Discharge Clinical Impression: vaginal bleeding post UTI (urinary tract infection) Qualifiers: Urinary tract infection type: acute cystitis Hematuria presence: with hematuria Qualified Code(s): N30.01 - Acute cystitis with hematuria Condition: Stable Disposition: HOME, SELF-CARE Additional Instructions: You were seen today for vaginal bleeding . I have discussed this with the SCHOOL PSYCHOLOGIST. She states your bleeding is normal for . We did check your CBC which shows you have a normal hemoglobin and hematocrit at this time. URINARY TRACT INFECTION: Your evaluation indicates that you have a urinary tract infection. This is due to germs growing in the bladder. This is a common problem. This infection usually responds quickly to antibiotics. Your antibiotic should be taken exactly as prescribed. Drink plenty of fluids -- three to four quarts a day. Occasionally, a bladder anesthetic will be prescribed to help stop the feeling of urgency until the antibiotic has a chance to clear the infection. This may cause your urine to be dark orange. Certain urine infections require a culture. If the doctor obtained a culture, the results will be back in two days. You should call to see if a ch ambrosio in treatment is needed. A repeat urinalysis after you finish treatment is often recommended. The physician will let you know if further testing is required. Call the doctor if you develop fever, chills, flank pain, inability to urinate, or blood in the urine. CEPHALEXIN: The antibiotic you've been prescribed is a member of the cephalosporin class. This type of antibiotic covers a wide variety of infections, including those of the skin, lungs, and urinary tract. It's useful for staph infections. This antibiotic is slightly similar to the penicillin family. In rare ca ses, a person who is allergic to penicillin will also be allergic to this medication. If you have had a severe allergic reaction to penicillin, and have not taken this antibiotic since that time, notify your doctor. Antibiotics which cover many germs ("broad spectrum" antibiotics) are more likely to cause diarrhea or "yeast" infections. Women prone to vaginal yeast problems may suffer an attack after taking this antibiotic. In infants, oral thrush (white spots "stuck" on the cheek) or yeast diaper rash may result. See your doctor if these problems occur. Call at once if you develop itching, hives, shortness of breath, or lightheadedness. Rocephin You have been given an injection of an antibiotic called Rocephin (ceftriaxone). Sometimes the injection must be combined with antibiotic pills. For some infections, such as an uncomplicated ear infection, Rocephin provides all the antibiotic that's needed. The antibiotic will be in your body for about two days. For serious infections, we usually repeat doses of Rocephin daily. Side effects are very unusual following a shot. Women may develop vaginal yeast infections, and babies can get yeast (thrush) in the mouth following the use of antibiotics. Contact your physician if you have symptoms with this medication. Allergy to this antibiotic can result in hives, wheezing, faintness, or itching. If symptoms of allergy occur, call the doctor at once. FOLLOW-UP CARE: If you have been referred to a physician for follow-up care, call the physicians office for an appointment as you were instructed or within the next two days. If you experience worsening or a significant change in your symptoms, notify the physician immediately or return to the Emergency Department at any ti me for re-evaluation. Prescriptions: Cephalexin Monohydrate [Keflex 500 mg Capsule] 500 mg PO Q6H 5 Days #20 capsule Referrals: LILLY DICKINSON DO [Primary Care Provider] - Follow up as needed [facility] [Provider Group] - Follow up in 3-5 days
[2019-12-27 23:11] LABS: ABSOLUTE BASOPHILS # (AUTO) 0.1 10^3/uL (0.0-0.2); ABSOLUTE EOSINOPHILS # (AUTO) 0.6 10^3/uL (0.0-0.6); ABSOLUTE LYMPHOCYTES (AUTO) 1.3 10^3/uL (0.5-4.7); BASOPHILS % (AUTO) 0.6 % (0-2); HEMATOCRIT 41.3 % (36.0-47.0); LYMPHOCYTES % (AUTO) 10.1 % (13-45); MEAN CORPUSCULAR HEMOGLOBIN 28.7 pg (27.0-33.4); MEAN CORPUSCULAR HGB CONC 33.8 g/dL (32.0-36.0); MEAN CORPUSCULAR VOLUME 85 fl (80-97); MONOCYTES % (AUTO) 7.3 % (3-13); PLATELET COUNT 392 10^3/uL (150-450); RED BLOOD COUNT 4.87 10^6/uL (3.72-5.28); RED CELL DISTRIBUTION WIDTH 14.1 % (11.5-14.0); TOTAL CELLS COUNTED % (AUTO) 100 %
[2019-12-27 23:18] LABS: APPEARANCE,URINE SLIGHTLY-CLOUDY; BILIRUBIN,URINE NEGATIVE (NEGATIVE); COLOR,URINE YELLOW; GLUCOSE, URINE NEGATIVE (NEGATIVE); KETONES,URINE NEGATIVE (NEGATIVE); PROTEIN,URINE NEGATIVE (NEGATIVE); URINE SPECIFIC GRAVITY 1.009; UROBILINOGEN,URINE NEGATIVE mg/dL (<2.0)
[2019-12-27 23:35] LABS: ALBUMIN 4.3 g/dL (3.5-5.0); ALKALINE PHOSPHATASE 117 U/L (38-126); ANION GAP 10 (5-19); ASPARTATE AMINO TRANSFERASE 20 U/L (14-36); BILIRUBIN,DIRECT 0.2 mg/dL (0.0-0.4); BILIRUBIN,TOTAL 0.4 mg/dL (0.2-1.3); BLOOD UREA NITROGEN 11 mg/dL (7-20); CALCIUM 9.4 mg/dL (8.4-10.2); CARBON DIOXIDE 26 mmol/L (22-30); CHLORIDE 104 mmol/L (98-107); GLUCOSE 93 mg/dL (75-110); POTASSIUM 3.9 mmol/L (3.6-5.0); TOTAL PROTEIN 7.9 g/dL (6.3-8.2)
[2019-12-27] MEDS ORDERED: CEFTRIAXONE 1 GM/D5W RTU 1 GM/50 ML RTUPB IV ONE (23:44)
[2019-12-27] MEDS ORDERED: NORMAL SALINE 1000 ML 1,000 ML IV ONE (23:45)
[2019-12-28 00:14] VITALS: BP 115/60
== END 2019-12-28 00:17 | disposition home or self-care (01) ==
LOC: ER 21:26
DX: O72.2 Delayed and secondary postpartum hemorrhage (principal); O86.22 Infection of bladder following delivery; Z98.890 Other specified postprocedural states; Z87.891 Personal history of nicotine dependence
CPT/HCPCS: 99284; 96365; 36415; 87086; 84703; 85025; 87088; 80053; 81001; J7030; J0696; 87186